=== PATIENT | female | born 1985 | race African-American/Black ===

== ENCOUNTER 2017-07-02 15:11 | Emergency (ER) | payer MEDICAID ==
[~2017-07-02] VITALS: Ht 162.6 cm; Wt 95.3 kg
[2017-07-02] MEDS ORDERED: LACTATED RINGER'S 1000 ML INJ 500 ML IV ONE (15:31)
[2017-07-02 16:56] LABS: AUTOMATED NEUTROPHIL # 9.1 TH/MM3 (1.8-7.7); BASOPHIL % 0.2 % (0.0-2.0); EOSINOPHIL # 0.1 TH/MM3 (0-0.4); EOSINOPHIL % 0.9 % (0.0-4.0); HEMATOCRIT 33.1 % (35.0-46.0); HEMO FLAGS DIFF FINAL; LYMPH % 20.5 % (9.0-44.0); LYMPHOCYTE # 2.7 TH/MM3 (1.0-4.8); MEAN CELL VOLUME 87.2 FL (80.0-100.0); MEAN CORPUSCULAR HEMOGLOBIN 29.7 PG (27.0-34.0); NEUT % 70.4 % (16.0-70.0); PLATELET COUNT 255 TH/MM3 (150-450); RED CELL DISTRIBUTION WIDTH 13.7 % (11.6-17.2)
[2017-07-02] MEDS ORDERED: DEXTROSE 5%-LACTATED RING INJ 1,000 ML IV SCH (17:00)
[2017-07-02 17:01] LABS: BACTERIA, URINE MOD /hpf; BLOOD, URINE NEG (NEG); CALCIUM OXALATE CRYSTALS,URINE FEW /hpf; COMMENT (UR) CULTURE INDICATED; CULTURE IF INDICATED CULTURE INDICATED; GLUCOSE,URINE NEG (NEG); KETONE, URINE NEG (NEG); MUCUS URINE FEW /lpf (OCC); NITRITE,URINE POS (NEG); SQUAMOUS EPITHELIAL CELL URINE 17 /hpf (0-5); URINE COLOR YELLOW (YELLW/STRAW)
[2017-07-02 17:26] LABS: ALT (GPT) 12 U/L (10-53); ANION GAP 11 MEQ/L (5-15); AST (GOT) 13 U/L (15-37); BICARBONATE 23.9 MEQ/L (21.0-32.0); BLOOD UREA NITROGEN 6 MG/DL (7-18); CHLORIDE 105 MEQ/L (98-107); GLOMERULAR FILTRATION RATE 176 ML/MIN (>89); POTASSIUM 4.1 MEQ/L (3.5-5.1); SODIUM (NA) 140 MEQ/L (136-145)
[2017-07-02 17:28] LABS: ALKALINE PHOSPHATASE 159 U/L (45-117); TOTAL BILIRUBIN ADULT 0.4 MG/DL (0.2-1.0)
[2017-07-02 17:34] LABS: AMPHETAMINE, URINE NEG (NEG); BARBITURATES, URINE NEG (NEG); COCAINE, URINE NEG (NEG)
[2017-07-02 17:59] LABS: RUBELLA IGG ANTIBODY 226.4 IU/mL (10.0-500.0); RUBELLA STATUS IMMUNE (IMMUNE)
[2017-07-02 19:29] LABS: CHLAMYDIA PCR NOT DETECTED (NOT DETECT); NEISSERIA PCR NOT DETECTED (NOT DETECT)
--- NOTE | 2017-07-02 19:43 | PD ---
HPI Chief Complaint No PNC, dehydration Travel History International Travel<30 Days: No Contact w/Intl Traveler<30Days: No Known Affected Area: No History of Present Illness HPI 32y/o , IUP at 39.4 by irregular LMP PNC complicated by: 1. Essentially no PNC (only 1 visit at 39.2) due to socioeconomic factors ( insurance issues, transportation issues). 2. Prior C/S x3 3. DS child at 3 mo. Patient presents for C/S consult at 39.4 by her LMP which she thinks was around 09/29-10/02/16, but she reports a h/o irregular menses. She is here to discuss a scheduled C/S. She indicates she would like a BTL, but just signed the papers. She reports in [place] the requirements were to be 24y/o and have had 1 child. She reports she signed her tubal papers at [facility]'s office and that she is does not desire any more biological children. She reports she has been every year and she's done having children after this baby. Per the records, she was seen 06/30/17 at [facility] office. She denies any LOF or VB. She denies any painful ctx. She denies any LOF or VB. She has no Ob complaints but reports she has to take the bus to get to work. She reports her first positive UPT was 11/06/16 and had a negative test in Aug, but didn't take one in Sep. She does report that she has to take the bus to come here or to work and it took her 1/5h to get here by the time she had to change busses and wait outside. 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 VSS AF SKIN: Warm and dry. HEAD: Normocephalic and atraumatic. EYES: No scleral icterus. No injection or drainage. ENT: No nasal drainage noted. Mucous membranes pink. Airway patent. NECK: Supple, trachea midline. No JVD. CARDIOVASCULAR: Regular rate and rhythm without murmurs, gallops, or rubs. RESPIRATORY: Breath sounds equal bilaterally. No accessory muscle use. BREASTS: Bilateral exam showed no masses , no retractions, no nipple discharge. ABDOMEN/GI: Abdomen soft, non-tender, bowel sounds present, no rebound, no guarding Gravid : deferred FHT's: Category: [1] Baseline: [120s] Reactive: [y] Variability: [moderate] Decels: [n] EXTREMITIES: No cyanosis or edema. BACK: Nontender without obvious deformity. No CVA tenderness. NEUROLOGICAL: Awake and alert. Motor and sensory grossly within normal limits. Five out of 5 muscle strength in all muscle groups. Normal speech. MS: grossly normal ROM, gait, muscle strength PSYCH: grossly normal memory, affect Data Data Orders Rubella Immune Status (07/02/17 15:31) Hepatitis Profile (07/02/17 15:31) Rapid Plasma Regin (Rpr) W Ttr (07/02/17 15:31) Type And Screen (07/02/17 15:31) Complete Blood Count With Diff (07/02/17 15:31) Special Serology (07/02/17 15:31) Intake + Output ASHELY.QSHIFT (07/02/17 15:31) Lactated Ringer's 1000 Ml Inj (Lr 1000 M (07/02/17 15:31) Vital Signs (Adult) .ON ADMISSION (07/02/17 15:31) ^ Labor Status (07/02/17 15:31) ^ Non Stress Test (07/02/17 15:31) ^ Hydration (07/02/17 15:31) Gc And Chlamydia Pcr (07/02/17 15:31) Ob/Psych Drug Screen, Urine (07/02/17 15:31) Us Ob Limited (07/02/17 ) Varicella Zoster Ab Igg (07/02/17 15:31) Urinalysis - C+S If Indicated (07/02/17 15:31) Comprehensive Metabolic Panel (07/02/17 15:31) Dextrose 5%-Lactated Ring Inj (D5-Lr Inj (07/02/17 17:00) Urine Culture (07/02/17 16:20) Ur Bath Salts (07/02/17 16:20) Ur Heroin (07/02/17 16:20) Ur K2 Spice (07/02/17 16:20) Ur Ecstasy (07/02/17 16:20) Phencyclidine Urine (Pcp) (07/02/17 16:20) Labs Laboratory Tests Test 07/02/17 16:20 White Blood Count 13.0 Red Blood Count 3.80 Hemoglobin 11.3 Hematocrit 33.1 Mean Corpuscular Volume 87.2 Mean Corpuscular Hemoglobin 29.7 Mean Corpuscular Hemoglobin 34.0 Concent Red Cell Distribution Width 13.7 Platelet Count 255 Mean Platelet Volume 7.6 Neutrophils (%) (Auto) 70.4 Lymphocytes (%) (Auto) 20.5 Monocytes (%) (Auto) 8.0 Eosinophils (%) (Auto) 0.9 Basophils (%) (Auto) 0.2 Neutrophils # (Auto) 9.1 Lymphocytes # (Auto) 2.7 Monocytes # (Auto) 1.0 Eosinophils # (Auto) 0.1 Basophils # (Auto) 0.0 CBC Comment DIFF FINAL Differential Comment Urine Color YELLOW Urine Turbidity HAZY Urine pH 6.0 Urine Specific [place] 1.023 Urine Protein 30 Urine Glucose (UA) NEG Urine Ketones NEG Urine Occult Blood NEG Urine Nitrite POS Urine Bilirubin NEG Urine Urobilinogen LESS THAN 2.0 Urine Leukocyte Esterase LARGE Urine WBC 111 Urine Squamous Epithelial 17 Cells Urine Calcium Oxalate Crystals FEW Urine Bacteria MOD Urine Mucus FEW Microscopic Urinalysis Comment CULTURE INDICATED Sodium Level 140 Potassium Level 4.1 Chloride Level 105 Carbon Dioxide Level 23.9 Anion Gap 11 Blood Urea Nitrogen 6 Creatinine 0.49 Estimat Glomerular Filtration 176 Rate Random Glucose 72 Calcium Level 9.4 Total Bilirubin 0.4 Aspartate Amino Transf 13 (AST/SGOT) Alanine Aminotransferase 12 (ALT/SGPT) Alkaline Phosphatase 159 Total Protein 6.8 Albumin 2.9 Urine Opiates Screen NEG Urine Barbiturates Screen NEG Urine Amphetamines Screen NEG Urine Benzodiazepines Screen NEG Urine Cocaine Screen NEG Urine Cannabinoids Screen NEG Chlamydia trachomatis DNA NOT DETECTED (PCR) Neisseria gonorrhoeae DNA NOT DETECTED (PCR) Rubella Immunity Screen IMMUNE Rubella Antibody, Quantitative 226.4 Blood Type O POSITIVE Antibody Screen NEGATIVE Blood Bank Comment Date/Time Procedure Status Source Growth 07/02/17 16:20 Urine Culture Received Urine Clean Catch Pending MDM Plan A/P: 32y/o 1. IUP at 39.2 by irregular LMP, confirmed by US today 2. Dehydration: patient was initially unable to void, but able to void after 2L IVF and feels well. 3. wellbeing: reassuring testing with reactive NST and BPP 07/06. FKC daily. 4. Prior C/S: will schedule. RBA discussed at length as per C/S consult note 5. h/o Down's syndrome baby: 6. No evidence of labor: strict labor precautions. 7. F/U in 3d or sooner if needed 8. h/o tobacco, pt d/c Diagnosis Diagnosis: Primary Impression: 39 weeks gestation of Disposition: 01 DISCHARGE HOME Condition: Good Patient Instructions: General Instructions, Early Labor Signs (ED), Movement (ED) Departure Forms: Tests/Procedures Sera Xavier MD Jul 02, 2017 19:43
--- NOTE | 2017-07-02 22:21 | HHI.PR ---
Subjective Remarks NST report Indications: IUP at 39w, no care, maternal dehydration baseline: 120s, moderate LTV, good accels, no decels, reactive NST toco: no regular ctx Fianl dx: IUpat 39w, reassuring testing F/u as clinically indicated Objective Result Diagram: 07/02/17 1620 07/02/17 1620 Sera Xavier MD Jul 02, 2017 22:21
[2017-07-05 10:03] LABS: RAPID PLASMA REAGIN SCREEN NON-REACTIVE (NON-REACTVE)
[2017-07-08 10:48] LABS: BATH SALTS (MDPV) UR NEG (NEG); ECSTASY (MDMA) UR NEG (NEG); GABAPENTIN UR NEG (NEG); HEROIN (6-ACETYLMORPHINE) UR NEG (NEG); HYDROMORPHONE U NEG (NEG); K2 SPICE UR NEG (NEG); OBMETHADONE UR NEG (NEG); OXYCODONE (PERCODAN) NEG (NEG); PHENCYCLIDINE URINE NEG (NEG)
== END 2017-07-02 19:15 | disposition home or self-care (01) ==
LOC: HOBED 15:11
DX: O99.283 Endocrine, nutritional and metabolic diseases complicating pregnancy, third trimester (principal); E86.0 Dehydration; Z3A.39 39 weeks gestation of pregnancy
CPT/HCPCS: 76816; 80053; 80074; 80307; 81001; 85025; 86592; 86703; 86762; 86787; 86850; 86900; 86901; 87077; 87086; 87186; 87491; 87591; G0481; 59025; 96360

== ENCOUNTER 2017-07-05 09:31 | Inpatient (IN) | payer MEDICAID ==
[2017-07-05] MEDS ORDERED: LACTATED RINGER'S 1000 ML INJ 1,000 ML IV ONE (11:16)
[2017-07-05 11:25] LABS: AUTOMATED NEUTROPHIL # 9.7 TH/MM3 (1.8-7.7); BASOPHIL # 0.1 TH/MM3 (0-0.2); BASOPHIL % 0.4 % (0.0-2.0); EOSINOPHIL # 0.1 TH/MM3 (0-0.4); EOSINOPHIL % 0.9 % (0.0-4.0); HEMATOCRIT 33.6 % (35.0-46.0); HEMO FLAGS DIFF FINAL; LYMPH % 19.9 % (9.0-44.0); LYMPHOCYTE # 2.7 TH/MM3 (1.0-4.8); MEAN CELL VOLUME 87.3 FL (80.0-100.0); MEAN CORPUSCULAR HEMOGLOBIN 29.8 PG (27.0-34.0); MEAN CORPUSCULAR HGB CONC 34.1 % (32.0-36.0); MONO % 7.1 % (0.0-8.0); NEUT % 71.7 % (16.0-70.0); PLATELET COUNT 259 TH/MM3 (150-450); RED BLOOD COUNT 3.84 MIL/MM3 (4.00-5.30); RED CELL DISTRIBUTION WIDTH 13.4 % (11.6-17.2); WHITE BLOOD COUNT 13.6 TH/MM3 (4.0-11.0)
--- NOTE | 2017-07-05 11:30 | HHI.HP ---
History & Physical H&P 32y/o , IUP at 39w5d who presents for elective repeat c/s with h/o previous 3 c/s. Pt with limited care due to social and transportation issues. She desires BTL but only signed the tubal at her last visit on 06/30/17. H/o child with Down's syndrome in 06/2015, no genetic testing in this , did have a normal anatomy scan at the OB diagnostic center on 07/02/17 at 39+ weeks. PNC complicated by: 1. Essentially no PNC (only 1 visit at 39.2) due to transportation and social; all labs sent on 07/02/2017 2. Prior C/S x3 3. 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 VSS AF SKIN: Warm and dry. HEAD: Normocephalic and atraumatic. EYES: No scleral icterus. No injection or drainage. ENT: No nasal drainage noted. Mucous membranes pink. Airway patent. NECK: Supple, trachea midline. No JVD. CARDIOVASCULAR: Regular rate and rhythm without murmurs, gallops, or rubs. RESPIRATORY: Breath sounds equal bilaterally. No accessory muscle use. BREASTS: Deferred ABDOMEN/GI: Abdomen soft, non-tender, bowel sounds present, no rebound, no guarding Gravid GENITOURINARY: deferred FHT's: Category: 1 Decels: None EXTREMITIES: No cyanosis or edema. BACK: Nontender without obvious deformity. No CVA tenderness. NEUROLOGICAL: Awake and alert. Motor and sensory grossly within normal limits. Five out of 5 muscle strength in all muscle groups. Normal speech. PSYCH: grossly normal memory, affect, rest grossly normal MS: grossly normal ROM, gait, muscle strength MDM Plan A/P: 32y/o at 39w5d Previous c/s time 3 for repeat elective c/s. Anterior, non-previa placenta -Admit for repeat c/s with routine preop orders -The risks, benefits and alternatives of section delivery were discussed with the patient including risks of infection, damage to other structures including bowel, bladder, uterus, ureters, or any other structures in the pelvis. Risk of bleeding may cause need for a blood transfusion which would increase risk of matteo HIV or hepatitis, although the risk is very low. Patient understands there is a risk of hysterectomy (removal of the uterus ) during this procedure. Risks of anesthesia, VTE and risk of with any surgical procedure is discussed. Risks of complications in future pregnancies and of needing section delivery with future pregnancies is discussed. The patient understands these risks and agrees to section. Isabella Coleman MD Jul 05, 2017 11:29
[2017-07-05] MEDS ORDERED: LACTATED RINGER'S 1000 ML INJ 1,000 ML IV SCH ×2 (11:46→20:00)
[2017-07-05 12:21] LABS: BACTERIA, URINE MANY /hpf; BLOOD, URINE NEG (NEG); COMMENT (UR) CULTURE INDICATED; CULTURE IF INDICATED CULTURE INDICATED; GLUCOSE,URINE NEG (NEG); KETONE, URINE TRACE mg/dL (NEG); MUCUS URINE MOD /lpf (OCC); NITRITE,URINE POS (NEG); SQUAMOUS EPITHELIAL CELL URINE 4 /hpf (0-5); URINE COLOR YELLOW (YELLW/STRAW)
[2017-07-05] MEDS ORDERED: OXYTOCIN 10 UNIT/ML AMP ONE ×2 (12:26→14:55)
[2017-07-05] MEDS ORDERED: ONDANSETRON HCL 4 MG/2 ML VIAL ONE (12:26)
[2017-07-05] MEDS ORDERED: MORPHINE SULFATE PF 5 MG/10 ML VIAL ONE (12:26)
[2017-07-05] MEDS ORDERED: ceFAZolin 2 GM PREMIX 50 ML IV SCH (12:30)
[2017-07-05] MEDS ORDERED: EPIDURAL-DIPHENHYDRAMINE HCL 50 MG/ML VIAL IV PUSH PRN (12:45)
[2017-07-05] MEDS ORDERED: EPIDURAL-NALOXONE HCL 0.4 MG/ML AMP IV PRN (12:45)
[2017-07-05] MEDS ORDERED: EPIDURAL-DO NOT ADMINISTER ANTICOAGULANTS PRN (12:45)
[2017-07-05] MEDS ORDERED: EPIDURAL-DIPHENHYDRAMINE HCL 50 MG CAP PO PRN (12:45)
[2017-07-05] MEDS ORDERED: EPIDURAL-NO SYSTEMIC NARCOTICS PRN (12:45)
[2017-07-05] MEDS ORDERED: CITRIC ACID-SODIUM CITRATE LIQ 30 ML UDC PO SCH (13:00)
[2017-07-05] MEDS ORDERED: METHYLERGONOVINE MALEATE 0.2 MG/ML VIAL ONE (14:44)
[2017-07-05] MEDS ORDERED: TRANEXAMIC ACID INJ 1,000 MG in SODIUM CHLORIDE 0.9% INJ 100 ML IV PRN (15:00)
--- NOTE | 2017-07-05 15:07 | PD.OB.DELI ---
Procedure Note Section Procedure Pre Op Diagnosis: (1) 39 weeks gestation of (2) Previous delivery affecting , antepartum Post Op Diagnosis: (1) 39 weeks gestation of (2) Previous delivery affecting , antepartum Performed by Isabella Coleman Procedure: Repeat Low Transverse Sec Indication for delivery: Desired elective repeat Informed consent obtained: For procedure Confirmed correct: Patient Anesthesia: Spinal Sterile preparation: Duraprep Position: Supine with wedge to left side Operative Features Skin Incision: Pfannenstiel Uterine Incision: Low transverse w/knife / blunt ext Membranes Ruptured: Artificially Presentation: Compound Delivery of infant: Uneventful : Female One Minute : 9 Five Minute : 9 Weight: 3440 Status of infant: Viable Placenta delivered: Intact Estimated blood loss: 400 Procedure tolerated: Well Condition: Stable Procedure in detail Findings: Normal, intact placenta with 3 vessel cord Normal uterus Normal tubes and ovaries bilaterally After informed consent was obtained the patient was taken to the operating room where her spinal anesthesia was found to be adequate. A robins catheter was placed and she was then prepared and draped in the normal sterile fashion in the dorsal supine position with a leftward tilt. A Pfannenstiel/midline skin incision was then made with the scalpel and the old incision was excised. The incision was carried through to the underlying layer of fascia. The fascia was incised in the midline and extended laterally with the Ornelas scissors. The incision was then grasped with the Royce clamps, elevated and the underlying rectus muscles dissected off bluntly/sharply with the Ornelas scissors. Attention was then turned to the inferior aspect of this incision which, in a similar fashion, was grasped, tented up with the Royce clamps, and the rectus muscles dissected off bluntly/sharply with the Ornelas scissors. The rectus muscles were then in the midline, and the peritoneum identified, tented up, and entered bluntly using manual dissection. The peritoneal incision was then extended superiorly and inferiorly with good visualization of the bladder. The bladder blade was then inserted and the lower uterine segment was incised in a transverse fashion with the scalpel. The uterine incision was then extended laterally digitally. The bladder blade was removed then the infant's head delivered atraumatically. The cord clamped and cut and the was handed off the field to the awaiting baby nurse. The placenta was then removed, the uterus exteriorized, and cleared of all clots and debris. The uterine incision was repaired with 0 Monocryl in a running, locked fashion. A second layer of the same suture was used in an imbricating fashion to obtain excellent hemostasis. The abdominal cavity was cleaned with a moist lap and the uterus was replaced into the abdomen. The gutters were cleared of all clots and debris the hysterotomy site was noted to be hemostatic. The peritoneum was closed with 2-0 Vicryl in a running fashion. The fascia was then reapproximated with 0 Vicryl in a running fashion. The subcutaneous tissue was closed with 3-0 chromic the skin was closed with 4-0 in a subcuticular fashion noting excellent hemostasis. Dermabond was placed along the length of the incision. The patient tolerated the procedure well. Sponge, lap and needle counts were correct times two. The patient was taken to the recovery room in stable condition. Isabella Coleman MD Jul 05, 2017 15:07
[2017-07-05] MEDS ORDERED: ONDANSETRON HCL 4 MG/2 ML VIAL IV PUSH PRN (15:15)
[2017-07-05] MEDS ORDERED: SODIUM CHLORIDE 0.9% FLUSH 10 ML FLUSH IV FLUSH PRN (15:15)
[2017-07-05] MEDS ORDERED: OXYTOCIN 30 UNITS-500ML PREMIX 500 ML IV ONE (15:15)
[2017-07-05] MEDS ORDERED: ACETAMINOPHEN 325 MG TAB PO PRN (15:15)
[2017-07-05] MEDS ORDERED: SIMETHICONE 80 MG CHEWABLE TAB PO PRN (15:15)
[2017-07-05] MEDS ORDERED: ZOLPIDEM TARTRATE 5 MG TAB PO PRN (15:15)
[2017-07-05] MEDS ORDERED: oxyCODONE/ACETAMINOPHEN 5 MG/325 MG TAB PO PRN (15:15)
[2017-07-05] MEDS ORDERED: METHYLERGONOVINE MALEATE 0.2 MG/ML VIAL IM ONE (15:15)
[2017-07-05] MEDS ORDERED: OXYTOCIN 30 UNITS-500ML PREMIX 500 ML ONE (15:23)
[2017-07-05] MEDS ORDERED: ACETAMINOPHEN 1000 MG/100 ML VIAL IV ONE ×2 (15:30)
[2017-07-05] MEDS ORDERED: SODIUM CHLORIDE 0.9% FLUSH 10 ML FLUSH IV FLUSH SCH (21:00)
[2017-07-06] MEDS ORDERED: OXYTOCIN 30 UNITS-500ML PREMIX 500 ML IV PRN (01:15)
[2017-07-06 06:35] VITALS: BP 113/64; PULSE 76; RESP 18; TEMP 98.3
[2017-07-06] MEDS: DOCUSATE SODIUM 50 MG/SENNA 8.6 MG TAB PO PRN ×2 (06:45→22:28)
[2017-07-06] MEDS: IBUPROFEN 600 MG TAB PO PRN ×3 (06:46→22:28)
--- NOTE | 2017-07-06 09:06 | HHI.OB ---
Subjective Post Operative Day: 1 Remarks Patient is a 32-year-old delivered at 39 weeks and 5 days. Patient is day one after repeat . Patient's pain is well-controlled. Patient reports minimal bleeding. Patient reports eating and drinking without any nausea or vomiting. Patient has not passed gas or had a bowel movement. Patient denies chest pain and shortness of breath. Patient has been ambulating; she denies lower extremity pain. Patient has decided to breast-feed. (Karen Freeman MD R1) Objective Vitals/I&O Vital Signs Date Time Temp Pulse Resp B/P Pulse Ox O2 Delivery O2 Flow Rate FiO2 07/06/17 06:35 98.3 76 18 113/64 (Karen Freeman MD R1) Result Diagram: 07/05/17 1045 Objective Remarks GENERAL: Well-nourished, well-developed patient. CARDIOVASCULAR: Regular rate and rhythm without murmurs, gallops, or rubs. RESPIRATORY: Breath sounds equal bilaterally. No accessory muscle use. ABDOMEN/GI: Abdomen soft, non-tender, hypoactive bowel sounds. Incision: Clean, dry and intact. Fundus: Firm, non-tender at umbilicus. GENITOURINARY: Light to moderate bleeding. EXTREMITIES: No cyanosis or edema, non-tender, without signs of DVT. Medications and IVs Current Medications Medications (Trade) Dose Ordered Sig/Artis Route Start Time Stop Time Status Last Admin (Lr 1000 ml Inj) 1,000 ml @ 100 mls/hr Q10H IV 07/05/17 20:00 07/06/17 15:59 (NS Flush) 2 ml BID IV FLUSH 07/05/17 21:00 (NS Flush) 2 ml UNSCH PRN IV FLUSH 07/05/17 15:15 (Mylicon Chew) 80 mg QID PRN PO 07/05/17 15:15 (Tylenol) 650 mg Q6H PRN PO 07/05/17 15:15 (Motrin) 600 mg Q6H PRN PO 07/05/17 15:15 07/06/17 06:46 (Percocet 5-325 Mg) 1 tab Q4H PRN PO 07/05/17 15:15 (Percocet 5-325 Mg) 2 tab Q4H PRN PO 07/05/17 15:15 (Siobhan-Colace) 2 tab Q12H PRN PO 07/05/17 15:15 07/06/17 06:45 (Ambien) 5 mg HS PRN PO 07/05/17 15:15 (M-M-R Ii Inj) 0.5 ml ONCE ONCE SQ 07/06/17 16:00 07/06/17 16:01 (Boostrix Inj) 0.5 ml ONCE ONCE IM 07/06/17 16:00 07/06/17 16:01 (Zofran Inj) 4 mg Q6H PRN IV PUSH 07/05/17 15:15 Miscellaneous Information NO SYSTEMIC NARCOTICS TO BE GIVEN FO... UNSCH PRN .XX 07/05/17 12:45 07/06/17 12:44 (Narcan Inj) 0.4 mg UNSCH PRN IV 07/05/17 12:45 07/06/17 12:44 (Benadryl Inj) 25 mg Q6H PRN IV PUSH 07/05/17 12:45 07/06/17 12:44 (Benadryl) 50 mg Q6H PRN PO 07/05/17 12:45 07/06/17 12:44 Miscellaneous Information ALL NURSING DEPARTMENTS UNSCH PRN .XX 07/05/17 12:45 07/06/17 12:44 (Karen Freeman MD R1) Assessment/Plan Assessment and Plan Patient is a 32-year-old delivered at 39 weeks and 5 days. Patient is day one after repeat . * Continue routine care. * Motrin and Percocet when necessary for pain. * Encourage OOB. * Pelvic rest for 6 weeks will need follow-up appointment at that time. * Anticipate discharge tomorrow. (Karen Freeman MD R1) Attending Attestation Pt seen and examined with resident. Agree with above. (Isabella Coleman MD) Karen Freeman MD R1 Jul 06, 2017 09:06 Isabella Coleman MD Jul 06, 2017 09:13
[2017-07-06] MEDS: oxyCODONE/ACETAMINOPHEN 5 MG/325 MG TAB PO PRN ×3 (09:30→22:28)
[2017-07-06 10:35] LABS: AUTOMATED NEUTROPHIL # 12.2 TH/MM3 (1.8-7.7); BASOPHIL # 0.1 TH/MM3 (0-0.2); BASOPHIL % 0.5 % (0.0-2.0); EOSINOPHIL # 0.1 TH/MM3 (0-0.4); EOSINOPHIL % 0.6 % (0.0-4.0); HEMO FLAGS DIFF FINAL; LYMPH % 12.2 % (9.0-44.0); LYMPHOCYTE # 1.9 TH/MM3 (1.0-4.8); MEAN CORPUSCULAR HEMOGLOBIN 29.6 PG (27.0-34.0); MONO % 9.8 % (0.0-8.0); NEUT % 76.9 % (16.0-70.0); PLATELET COUNT 228 TH/MM3 (150-450); RED BLOOD COUNT 3.56 MIL/MM3 (4.00-5.30); RED CELL DISTRIBUTION WIDTH 13.2 % (11.6-17.2); WHITE BLOOD COUNT 15.9 TH/MM3 (4.0-11.0)
[2017-07-06] MEDS ORDERED: DIPHTH/TETANUS/ACEL PERTUSSIS (BOOSTER) 0.5 ML VIAL/PFS IM ONE (16:00)
[2017-07-06] MEDS ORDERED: MEASLES, MUMPS, RUBELLA VACCINE 0.5 ML VIAL SQ ONE (16:00)
[2017-07-07] MEDS: oxyCODONE/ACETAMINOPHEN 5 MG/325 MG TAB PO PRN ×2 (02:30→06:18)
[2017-07-07] MEDS: IBUPROFEN 600 MG TAB PO PRN ×2 (06:17→12:07)
--- NOTE | 2017-07-07 07:57 | HHI.OB ---
Subjective Post Operative Day: 2 Remarks Patient is a 32-year-old delivered at 39 weeks and 5 days. Patient is day 2 after repeat . Patient's pain is well-controlled. Patient reports minimal bleeding. Patient reports eating and drinking without any nausea or vomiting. Patient has passed gas and had a bowel movement. Patient denies chest pain and shortness of breath. Patient has been ambulating; she denies lower extremity pain. Patient has decided to breast-feed. She requests OCP for contraception. (Prashant Cormier MD R2) Objective Result Diagram: 07/06/17 1026 Objective Remarks GENERAL: Well-nourished, well-developed patient. CARDIOVASCULAR: Regular rate and rhythm without murmurs, gallops, or rubs. RESPIRATORY: Breath sounds equal bilaterally. No accessory muscle use. ABDOMEN/GI: Abdomen soft, non-tender, hypoactive bowel sounds. Incision: Clean, dry and intact. Fundus: Firm, non-tender at umbilicus. GENITOURINARY: Light to moderate bleeding. EXTREMITIES: No cyanosis or edema, non-tender, without signs of DVT. Medications and IVs Current Medications Medications (Trade) Dose Ordered Sig/Artis Route Start Time Stop Time Status Last Admin (NS Flush) 2 ml BID IV FLUSH 07/05/17 21:00 (NS Flush) 2 ml UNSCH PRN IV FLUSH 07/05/17 15:15 (Mylicon Chew) 80 mg QID PRN PO 07/05/17 15:15 (Tylenol) 650 mg Q6H PRN PO 07/05/17 15:15 (Motrin) 600 mg Q6H PRN PO 07/05/17 15:15 07/07/17 06:17 (Percocet 5-325 Mg) 1 tab Q4H PRN PO 07/05/17 15:15 07/07/17 06:18 (Percocet 5-325 Mg) 2 tab Q4H PRN PO 07/05/17 15:15 (Siobhan-Colace) 2 tab Q12H PRN PO 07/05/17 15:15 07/06/17 22:28 (Ambien) 5 mg HS PRN PO 07/05/17 15:15 (Zofran Inj) 4 mg Q6H PRN IV PUSH 07/05/17 15:15 (Prashant Cormier MD R2) Assessment/Plan Problem List: (1) S/P (2) Previous delivery affecting , antepartum (3) 39 weeks gestation of Assessment and Plan Patient is a 32-year-old delivered at 39 weeks and 5 days. Patient is day one after repeat . * Continue routine care. * Motrin and Percocet when necessary for pain. * Encourage OOB. * Pelvic rest for 6 weeks will need follow-up appointment at that time. Incision check in one week * Anticipate discharge tomorrow. * Contraception: OCPs * AF VSS * Anticipate discharge today Discharge Planning Today (Prashant Cormier MD R2) Attending Attestation The exam, history, and the medical decision-making described in the above note were completed with the assistance of the resident provider. I reviewed and agree with the findings presented. I attest that I had a [id number] encounter with the patient on the same day, and personally performed and documented my assessment and findings in the medical record. (Dae Tompkins MD) Prashant Cormier MD R2 Jul 07, 2017 07:57 Dae Tompkins MD Jul 07, 2017 09:03
[2017-07-07] MEDS ORDERED: OXYC1TAB63 PO (09:00)
[2017-07-07] MEDS ORDERED: IBUP-232 PO (09:00)
[2017-07-07] MEDS ORDERED: NORE0.354 PO ×2 (09:00→09:07)
--- NOTE | 2017-07-07 09:01 | HHI.DCPOC ---
Discharge Care Plan Diagnosis: (1) 39 weeks gestation of (2) Previous delivery affecting , antepartum (3) S/P Report Symptoms to Your Doctor -Temperature above 100.5 degrees -Redness, of incision or excessive or foul smelling drainage -Unusual pain or calf pain -Increased vaginal bleeding -Painful or difficulty urinating -Feelings of extreme sadness or anxiety after 2 weeks Goals to Promote Your Health * To prevent worsening of your condition and complications, please follow-up with * To maintain your health at the optimal level, following your doctor's recommendations. Directions to Meet Your Goals Take your medications as prescribed Follow your dietary instruction Follow activity as directed Ensure plenty of rest for recovery Drink fluids for hydration Keep your appointments as scheduled Take your immunizations and boosters as scheduled If your symptoms worsen call your PCP, if no PCP go to Urgent Care Center or Emergency Room Smoking is Dangerous to Your Health. Avoid second hand smoke Call the 24-hour crisis hotline for domestic abuse at Prashant Cormier MD R2 Jul 07, 2017 09:01
== END 2017-07-07 15:08 | disposition home or self-care (01) | DRG 766 ==
LOC: H2EB 09:31 → H1EA 16:20
PROVIDERS: ADMIT Obstetrics & Gynecology; ATTEND Obstetrics & Gynecology
PROC: 10D00Z1 Extraction of Products of Conception, Low, Open Approach (ICD-10-PCS; principal; 2017-07-05)
DX: O34.211 Maternal care for low transverse scar from previous cesarean delivery (principal); J45.909 Unspecified asthma, uncomplicated; Z37.0 Single live birth; Z3A.39 39 weeks gestation of pregnancy; O99.52 Diseases of the respiratory system complicating childbirth
CPT/HCPCS: 59025; 76937; 81001; 85025; 87077; 87086; 87186; 90715; J0131; J0690; J2210; J2274; J2405; J2590; J7120

== ENCOUNTER 2017-09-21 12:43 | Emergency (ER) | payer MEDICAID ==
[~2017-09-21] VITALS: Ht 162.6 cm; Wt 92.5 kg
[~2017-09-21 12:43] MED LIST: IBUP-232 PO; NORE0.354 PO; OXYC1TAB63 PO
[2017-09-21 12:49] VITALS: BP 140/80; PULSE 94; RESP 16; TEMP 98.7; O2SAT 99
== END 2017-09-21 14:50 | disposition left against medical advice (07) ==
LOC: PHED 12:43 → PHEFT 14:50
DX: S99.911A Unspecified injury of right ankle, initial encounter (principal); X58.XXXA Exposure to other specified factors, initial encounter
CPT/HCPCS: 99281

== ENCOUNTER 2017-10-13 13:13 | Emergency (ER) | payer MEDICAID ==
[~2017-10-13] VITALS: Ht 162.6 cm; Wt 89.0 kg
[2017-10-13 13:28] VITALS: BP 169/93; PULSE 103; RESP 16; TEMP 98.4; O2SAT 97
[2017-10-13] MEDS ORDERED: AZIT250T3 PO (14:55)
[2017-10-13] MEDS ORDERED: FLUT1SPR5 EACH NARE (14:55)
--- NOTE | 2017-10-13 14:56 | PD ---
HPI . Upper respiratory symptoms Chief Complaint: Cold / Flu Symptoms Time Seen by Provider: 13:58 Travel History International Travel<30 days: No Contact w/Intl Traveler<30days: No Traveled to known affect area: No History of Present Illness HPI 32-year-old female presents emergency department for evaluation of cough, sore throat, runny nose, fever, ear pain 8 days. Patient denies any major medical history. She is a pack-a-day smoker. Patient denies any chest pain or shortness of breath. She denies any abdominal pain. Patient states that her appetite has been decreased within the last week. PFSH Past Medical History Medical History: Denies Significant Hx Diminished Hearing: No Immunizations Current: Yes Tetanus Vaccination: < 5 Years Influenza Vaccination: No ?: Not LMP: 2 WKS Past Surgical History Section: Yes (X4) Oral Surgery: Yes (WISDOM) Other Surgery: Yes (BREAST BX) Social History Alcohol Use: No Tobacco Use: Yes (1 PK) Substance Use: No Allergies-Medications (Allergen,Severity, Reaction): Coded Allergies: shellfish derived (Unverified Allergy, Unknown, throat swells, 10/13/17) Reported Meds & Prescriptions Reported Meds & Active Scripts Active Flonase Nasal [place] (Fluticasone Nasal [place]) 50 Mcg/Act [place] 50 Mcg EACH NARE BID Azithromycin 250 Mg Tab 250 Mg PO DIRECTED Take 2 tabs (500 mg) on day 1 then 1 tab daily x 4 days. Review of Systems Except as stated in HPI: all other systems reviewed are Neg HENT: Positive: Sore Throat, Congestion, Earache Physical Exam Narrative GENERAL: Well-nourished, well-developed 32-year-old female patient in no acute distress. Nontoxic appearing. SKIN: Focused skin assessment warm/dry. HEAD: Normocephalic. Atraumatic. EYES: No scleral icterus. No injection or drainage. ENT: Mucosa pink and moist. No erythema or exudates. No uvular edema. No uvular , palatal, or tonsillar deviation. Airway patent. Nasal turbinates appear hypertrophic without nasal blood, purulent drainage or septal hematoma. THROAT: Mild pharyngeal injection, No exudates, or tonsillar hypertrophy. Airway is patent. NECK: Supple, trachea midline. No JVD or lymphadenopathy. CARDIOVASCULAR: Regular rate and rhythm without murmurs, gallops, or rubs. RESPIRATORY: Breath sounds equal bilaterally. No accessory muscle use. GASTROINTESTINAL: Abdomen soft, non-tender, nondistended. MUSCULOSKELETAL: No cyanosis, or edema. BACK: Nontender without obvious deformity. No CVA tenderness. Data Data Last Documented VS Vital Signs Date Time Temp Pulse Resp B/P (MAP) Pulse Ox O2 Delivery O2 Flow Rate FiO2 10/13/17 13:48 97 Room Air 10/13/17 13:28 98.4 103 16 169/93 (118) Orders Orders Influenzae A/B Antigen (10/13/17 14:23) Ed Discharge Order (10/13/17 14:56) MDM Medical Decision Making Medical Screen Exam Complete: Yes Emergency Medical Condition: Yes Differential Diagnosis Differential diagnoses include but not limited to URI, pharyngitis, otitis media , bronchitis Narrative Course 32-year-old female presents emergency department for evaluation of upper respiratory symptoms. Patient is afebrile in triage. Patient states she has not a fever and a couple days however she still continued to cough up phlegm. She describes the phlegm as clear and thick. Patient's lungs are clear to auscultation with no rales or rhonchi. Due to patient being afebrile with clear lungs no chest x-ray was ordered. Patient was tested for influenza which came back negative. Patient was treated with a Z-Ha for bronchitis, Flonase for nasal congestion, given information on supportive care and discharged home with instructions to follow-up with her primary care or return to the emergency Department with any worsening condition. Diagnosis Primary Impression: Bronchitis Referrals: Primary Care Physician Patient Instructions: Acute Bronchitis (ED), General Instructions Additional Instructions: Please return to emergency department if your symptoms return or worsen. Follow up with your primary care provider. Take medications as prescribed. May take [id number] ibuprofen or Tylenol as needed for pain or fever. Supportive care, get enough rest, stay hydrated, diet as tolerated. Med/Other Pt SpecificInfo: Prescription(s) given Scripts Fluticasone Nasal [place] (Flonase Nasal [place]) 50 Mcg/Act [place] 50 MCG EACH NARE BID for Allergies, #1 BOTTLE 0 Refills Prov: Suki Kelsey 10/13/17 Azithromycin (Azithromycin) 250 Mg Tab 250 MG PO DIRECTED for Infection, #6 TAB 0 Refills Take 2 tabs (500 mg) on day 1 then 1 tab daily x 4 days. Prov: Suki Kelsey 10/13/17 Disposition: 01 DISCHARGE HOME Condition: Stable Suki Kelsey Oct 13, 2017 14:56
== END 2017-10-13 15:23 | disposition home or self-care (01) ==
LOC: PHEFT 13:13
DX: J40 Bronchitis, not specified as acute or chronic (principal); F17.200 Nicotine dependence, unspecified, uncomplicated
CPT/HCPCS: 87804; 99283